=== PATIENT | female | born 1980 | race Two or more races ===

== ENCOUNTER 2022-06-06 13:19 | Day surgery (SDC) | payer OTHER | END 2022-06-06 22:15 | disposition home or self-care (01) | LOC: CIR.AMB 13:19 | PROVIDERS: ATTEND Obstetrics & Gynecology | DX: O02.1 Missed abortion (principal); Z20.822 Contact with and (suspected) exposure to COVID-19 ==

== ENCOUNTER 2025-05-04 06:00 | Day surgery (SDC) | payer OTHER ==
[2025-04-28 09:45] VITALS: BP 105/72
[2025-04-28 10:05] LABS: BASO % 1.0 % (0.1-1.2); EOS # 0.10 (0.04-0.54); EOS % 2.0 % (0.7-7.0); LYMPH # 1.54 (1.18-3.74); LYMPH % 30.3 % (19.3-53.1); MEAN PLATELET VOLUME 9.60 fl (9.4-12.4); MONO # 0.39 (0.24-0.82); MONO % 7.7 % (4.7-12.5); NEUT # 2.98 (1.56-6.13); NEUT % 58.6 % (34.0-71.1); RED CELL DISTRIBUTION WIDTH 13.2 % (11.6-14.4)
[2025-04-28 10:32] LABS: INR 1.0
[2025-04-28 11:07] LABS: ALT/SGPT 18.0 U/L (12-78); AST/SGOT 16.0 U/L (15-37); BILIRUBIN TOTAL 1.08 mg/dL (0.3-1.2); BUN CREA RATIO 15.0 (7.0-25.0); CREATININE SERUM 0.88 mg/dL (0.55-1.02); GFR 70.13; GLOBULINA 3.7 G/DL (2.4-3.5); GLUCOSE FASTING 85.0 mg/dL (65-100); OSMOLALITY SERUM 281.0 MOSM/KG (275-295)
[~2025-05-04] VITALS: Ht 157.5 cm; Wt 56.7 kg
[2025-05-04] MEDS ORDERED: PROMETHAZINE HCL 50 MG/ML AMPUL IM ONE (08:30)
[2025-05-04] MEDS ORDERED: MORPHINE SULFATE 4 MG/ML VIAL IV PRN (08:30)
== END 2025-05-04 10:55 | disposition home or self-care (01) ==
LOC: CIR.AMB 06:00
PROVIDERS: ATTEND Obstetrics & Gynecology
DX: N84.0 Polyp of corpus uteri (principal); N93.8 Other specified abnormal uterine and vaginal bleeding; Z88.6 Allergy status to analgesic agent